=== PATIENT | male | born 1985 | race African-American/Black ===

== ENCOUNTER 2016-12-29 06:42 | Emergency (ER) | payer BC ==
[~2016-12-29] VITALS: Ht 175.3 cm; Wt 85.7 kg
[2016-12-29 06:54] VITALS: BP 134/82
--- NOTE | 2016-12-29 07:08 | PHYS DOC ---
Past Medical History Past Medical History: Asthma, Other Additional Past Medical Histor: HERNIA, Heart Murmur Past Surgical History: Other Additional Past Surgical Histo: HERNIA X2 Alcohol Use: Occasionally Drug Use: None Adult General Chief Complaint Chief Complaint: TOE PROBLEM HPI HPI Patient is a 31 year old male presents emergency department stating that he was trying to take some luggage of time when he stepped on what is used for decorations. He states he has a laceration to the left great toe on the plantar side. Patient states that he is unsure when his last tetanus immunization occurred. Patient states he is having increased pain and discomfort. Has good sensation to his toe. Patient denies any numbness or tingling. Review of Systems Review of Systems Constitutional: Denies fever or chills [] Eyes: Denies change in visual acuity, redness, or eye pain [] HENT: Denies nasal congestion or sore throat [] Respiratory: Denies cough or shortness of breath [] Cardiovascular: No additional information not addressed in HPI [] GI: Denies abdominal pain, nausea, vomiting, bloody stools or diarrhea [] : Denies dysuria or hematuria [] Musculoskeletal: Denies back pain or joint pain [] Integument: Denies rash or skin lesions. C/o laceration to the plantar side of the left great toe Neurologic: Denies headache, focal weakness or sensory changes [] Current Medications Current Medications Current Medications Medications (Trade) Dose Ordered Sig/Vincent Start Time Stop Time Status Last Admin Dose Admin Diphtheria/ Tetanus/Acell Pertussis (Boostrix) 0.5 ml ONCE ONCE 12/29/16 07:30 12/29/16 07:31 DC 12/29/16 07:25 0.5 ML Lidocaine/Sodium Bicarbonate (Buffered Lidocaine 1%) 20 ml 1X ONCE 12/29/16 07:30 12/29/16 07:31 DC 12/29/16 07:26 20 ML Allergies Allergies Allergies Coded Allergies Type Severity Reaction Last Updated Verified No Known Drug Allergies 06/29/15 No Physical Exam Physical Exam Constitutional: Well developed, well nourished, no acute distress, non-toxic appearance. [] HENT: Normocephalic, atraumatic, bilateral external ears normal, oropharynx moist, no oral exudates, nose normal. [] Eyes: PERRLA, EOMI, conjunctiva normal, no discharge. [] Neck: Normal range of motion, no tenderness, supple, no stridor. [] Cardiovascular:Heart rate regular rhythm Lungs & Thorax: no respiratory distress noted Skin: Warm, dry, no erythema, no rash. Patient with a 2 cm laceration noted to the plantar side of the left great toe. Back: No tenderness Extremities: No tenderness, no cyanosis, no clubbing, ROM intact, no edema. [] Neurologic: Alert and oriented X 3, normal motor function, normal sensory function, no focal deficits noted. [] Psychologic: Affect normal, judgement normal, mood normal. [] Current Patient Data Vital Signs Vital Signs Date Time Temp Pulse Resp B/P Pulse Ox O2 Delivery O2 Flow Rate FiO2 12/29/16 06:54 98.4 77 16 134/82 98 98.4 12/29/16 06:53 Room Air EKG EKG [] Radiology/Procedures Radiology/Procedures [][facility] [address] [place], [place] [id number] IMAGING REPORT Signed PATIENT: ITZ RUBIN ACCOUNT: [id number] : 1985 LOCATION: ER AGE: 31 SEX: M EXAM STATUS: REG ER ORD. PHYSICIAN: ADAN ROQUE APRN REASON: left great toe, stepped on log PROCEDURE: TOES LEFT Left great toe, 3 views, 12/29/2016: History: Laceration, injury No fracture or dislocation is identified. No radiopaque foreign body is evident in the soft tissues. A small soft tissue defect containing gas is noted proximally compatible with the history of a laceration. IMPRESSION: No significant bony abnormality is detected. DICTATED and SIGNED BY: LUIS HUYNH MD DATE: 12/29/16 0742 CC: ADAN ROQUE APRN; NO PCP ~ Course & Med Decision Making Course & Med Decision Making Pertinent Labs and Imaging studies reviewed. (See chart for details) Sutures placed with patient provided with discharge instructions. Keep the area clean and dry. Clean with soap and water twice a day and apply antibiotic ointment to the area. Watch for signs and symptoms of infection: redness, warmth , tenderness or any yellow/greenish drainage that may occur. If this happens followup immediately. Sutures out in 7-10 days. May use Tylenol or Ibuprofen for pain and discomfort. Patient was provided with signs and symptoms to return to emergency department. Patient agrees with discharge instructions, treatment regimen and followup recommendations. [] Dragon Disclaimer Dragon Disclaimer This electronic medical record was generated, in whole or in part, using a voice recognition dictation system. Departure Departure Impression: Primary Impression: Laceration Disposition: HOME, SELF-CARE Condition: STABLE Referrals: NO PCP (PCP) Patient Instructions: Laceration Care, Adult, [id number] Additional Instructions: Activity as tolerated. Tylenol or ibuprofen for pain and discomfort. Keep the area clean and dry. Clean the site twice a day with soap and water and apply antibiotic ointment. Watch for signs and symptoms of infection: Redness, warmth, tenderness or any yellow/greenish drainage. If this should develop you need to follow-up to primary care physician immediately. Medication as prescribed. Follow-up through primary care physician next 7-10 days to have sutures removed. Return back to emergency department sign symptoms of become worse. Scripts Cephalexin (Keflex)500 Mg Capsule1 Cap PO BID #[id number] CAP Prov:ADAN ROQUE APRN 12/29/16 Laceration/Wound Repair Laceration/Wound Repair : Wound Location: lower extremity Wound's Depth, Shape: superficial Wound Length (cm): 2 Wound Explored: clean Irrigated w/ Saline (ccs): 200 Betadine Prep?: Yes Anesthesia: 1% Lidocaine Volume Anesthetic (ccs): 6 Wound Debrided: minimal Wound Repaired With: sutures Suture Size/Type: 4:0 Number of Sutures: 6 Progress Site was injected with 1% Lidocaine buffered with 6 ml. Irrigated site with NS 200 ml. Site cleaned with betadine with 4-[address] 6 interrupted sutures. Dressing applied by nursing staff. ADAN ROQUE APRN Dec 29, 2016 07:08
[2016-12-29] MEDS ORDERED: LIDOCAINE 1% / SOD BICARB 8.4% 20 ML VIAL. IJ ONE (07:30)
[2016-12-29] MEDS ORDERED: DIPHTH,PERTUSS(ACELL),TET TOX 0.5 ML DISP.SYRIN. VAX IM ONE (07:30)
--- NOTE | 2016-12-29 07:47 | RAD ---
Left great toe, 3 views, 12/29/2016: History: Laceration, injury No fracture or dislocation is identified. No radiopaque foreign body is evident in the soft tissues. A small soft tissue defect containing gas is noted proximally compatible with the history of a laceration. IMPRESSION: No significant bony abnormality is detected.
[2016-12-29] MEDS ORDERED: CEPH-264 PO (07:48)
== END 2016-12-29 08:15 | disposition home or self-care (01) ==
LOC: ER 06:42
DX: S91.112A Laceration without foreign body of left great toe without damage to nail, initial encounter (principal); J45.909 Unspecified asthma, uncomplicated; W01.0XXA Fall on same level from slipping, tripping and stumbling without subsequent striking against object, initial encounter; Y93.89 Activity, other specified; Y99.8 Other external cause status; Y92.89 Other specified places as the place of occurrence of the external cause
CPT/HCPCS: 12001; 73660; 90471; 90715; 99284-25